=== PATIENT | female | born 1970 | race Caucasian/White ===

== ENCOUNTER → 2019-05-29 | Outpatient (REF) | payer BC ==
[2019-05-29 21:47] LABS: APPEARANCE, URINE HAZY (CLEAR); BACTERIA, URINE AUTO 1+ (NEGATIVE); BILIRUBIN, URINE AUTO NEGATIVE (NEGATIVE); BLOOD, URINE BLOOD 1+ (NEGATIVE); COLOR, URINE YELLOW (YELLOW); GLUCOSE, URINE (UA) AUTO NEGATIVE (NEGATIVE); KETONE, URINE AUTO NEGATIVE (NEGATIVE); LEUKOCYTE ESTERASE, URINE AUTO 3+ (NEGATIVE); MUCUS, URINE SMALL (NEGATIVE); NITRITE, URINE AUTO NEGATIVE (NEGATIVE); PROTEIN, URINE AUTO NEGATIVE (NEGATIVE); RBC, URINE AUTO 14 /HPF (0-3); SPECIFIC GRAVITY URINE AUTO 1.014 (1.002-1.035); SQUAMOUS EPITHELIAL CELL UR AU 3 /HPF (0-6); UROBILINOGEN, URINE AUTO 0.2 mg/dL (0.0-2.0); WBC, URINE AUTO 36 /HPF (0-3)
== END ==
LOC: M LAB REF 14:44
PROVIDERS: ATTEND Physician Assistant Medical
DX: N39.0 Urinary tract infection, site not specified (principal)

== ENCOUNTER → 2019-12-05 | Outpatient (CLI) | payer BC | LOC: M PLALAB 12:27 | PROVIDERS: ATTEND Surgery | DX: Z13.79 Encounter for other screening for genetic and chromosomal anomalies (principal) ==

== ENCOUNTER → 2019-12-05 | Outpatient (CLI) | payer BC ==
--- NOTE | 2019-12-05 13:54 | REP ---
ULTRASOUND LEFT BREAST: Real-time sonographic evaluation of the left breast performed in the region of the 1 o'clock, 6 cm from the nipple, in the region of a palpable lump. In that region there is an oval mildly lobulated hypoechoic structure. This appears bilobed. It may represent two adjacent cysts or a bilobed cyst with a thin septation. It measures 5.0 x 3.0 x 6.0 mm in total. No internal color flow is seen with Doppler evaluation. IMPRESSION: ACR 3 probably benign. Hypoechoic structure at 1 o'clock left breast at the site of a palpable abnormality. In total it measures 5.0 x 3.0 x 6.0 mm and appears to represent a bilobed cyst with a thin septation, or two adjacent cysts. Recommend followup ultrasound in 6 months.
== END ==
LOC: M WHC 12:09
PROVIDERS: ATTEND Surgery
DX: N63.20 Unspecified lump in the left breast, unspecified quadrant (principal); R92.1 Mammographic calcification found on diagnostic imaging of breast

== ENCOUNTER → 2019-12-14 | Outpatient (CLI) | payer BC ==
[~2019-12-14] MED LIST: BUPR150T3 PO; CVS1CAP2 PO; OMEP10CASR PO
[2019-12-14 12:41] VITALS: BP 112/72
--- NOTE | 2019-12-14 13:54 | REP ---
SPECIMEN RADIOGRAPHY LEFT BREAST: TWO VIEWS. HISTORY: Stereotactic needle biopsy for microcalcifications. Comparison mammography November 28, 2019. FINDINGS: Specimen radiography demonstrates numerous microcalcifications from the target grouping in the removed biopsy specimens. IMPRESSION: Specimen radiography demonstrates multiple microcalcifications from the target grouping.
--- NOTE | 2019-12-17 15:03 | ROOPDOC ---
[facility] Report Of Operation Report of Operation DATE OF PROCEDURE: 12/14/19 PREPROCEDURE DIAGNOSES: Left breast calcifications POSTPROCEDURE DIAGNOSES: Left breast calcifications PROCEDURE: Left breast stereotactic biopsy of calcifications and clip placement. SURGEON: Man Becerra RIDDLER OPERATOR: ANESTHESIA: Local anesthetic was used. ESTIMATED BLOOD LOSS: Approximately 1 mL. COMPLICATIONS: None. REMARKS: clip is visible on postbiopsy mammogram. There are a few remaining calcifications next the clip DESCRIPTION OF PROCEDURE: Lidocaine 1% LOT [id number] Expiration 01/2023 Sodium Bicarbonate 8.4% LOT [id number] Expiration 01/2021 Hydromark clip LOT F [id number] Expiration 06/2021 T1 titanium shaped 1 (closed Spring) Bx device: Stereotactic Mammotome Revolve Dual Vacuum- assisted Biopsy System 10 G LOT [id number] Expiration 09/2022 Informed consent was obtained in the preop area. The most common risk and possible complications including bleeding, hematoma, bruising, infection, injury to surrounding structures were explained to the patient and she expressed understanding. Patient was taken to the procedure room and placed prone on the [facility] Breast Biopsy table with the left breast hanging through the table aperture. Left breast was placed into Cranio-Caudal compression and [employer] sonu images were taken. Suspicious calcifications were identified on the sonu images and target was set using CC from the top approach At this time, since we were able to confirm visibility of the suspicious calcifications and patient tolerated prone positioning allowing to proceed with the biopsy, appropriate time out was done stating patients name, date of , and the procedure to be performed. The left breast in ML/CC compression was prepped in the usual fashion. Plain Lidocaine 1% and 8.4% sodium bicarbonate 10:1 mix was used to numb the skin, the biopsy site and tissues along the anticipated biopsy tract. Small skin incision was made with blade number 11. Mammotome 10 G stereotactic breast biopsy device was inserted through the incision and advanced to the previously set coordinates marking the target lesion. Pre-fire imaging was taken to assure appropriate positioning. At this time, Mammotome 10 G breast biopsy device was fired and vacuum assisted biopsies were collected. The biopsy samples were investigated with [employer] system and a few calcs were observed. Biopsy samples were then placed in the formaldehyde, marked with patients name and left breast biopsy site, and sent to pathology for evaluation. Hydromark clip was placed into the Mammotome biopsy device channel and deployed. Post-deployment imaging was done to assure appropriate clip deployment. Clip was noted in the left breast. At this point, paddle CC compression of the left breast was released and manual pressure was held to decrease harmonic effect and to assure hemostasis. No bleeding was noted upon removal of the pressure. Patient was slowly repositioned and placed into sitting position, and then assisted off the table. Post-biopsy mammogram of the left breast was obtained and showed clip in expected position. Postprocedural dressing was placed. Patient tolerated procedure well and was taken to the recovery unit in stable condition. Discharge instructions were discussed with the patient and she expressed understanding. MAN BECERRA DO Dec 17, 2019 15:03
== END ==
LOC: M WHCPRO 10:25
PROVIDERS: ATTEND Surgery
DX: N60.11 Diffuse cystic mastopathy of right breast (principal); R92.1 Mammographic calcification found on diagnostic imaging of breast

== ENCOUNTER → 2020-06-22 | Outpatient (CLI) | payer BC ==
--- NOTE | 2020-06-27 08:31 | REP ---
DIAGNOSTIC MAMMOGRAM LEFT BREAST HISTORY: Negative stereotactic biopsy 12/14/2019. Six month follow-up exam. Family history of breast cancer in mother at age 49. Tyrer-Cuzick lifetime risk of breast cancer 16.5%. TECHNIQUE: Mammogram of the left breast was performed with tomosynthesis and additional magnification views of the upper outer quadrant. There is mild scattered fibroglandular density. [place] breast density is B. Once again at the site of the prior biopsy in the upper outer quadrant a biopsy clip is seen. There is a small amount of surrounding post biopsy fluid. There are a couple of tiny residual calcifications at that location unchanged when compared to the post stereotactic mammographic images obtained 12/14/2019. There are other scattered tiny calcifications throughout the left breast. There is no change since the prior exam. A MediPort catheter is again seen in the axillary region. IMPRESSION: ACR 2 benign. No change when compared to the post stereotactic mammography images of 12/14/2019. Biopsy clip is again seen in the upper outer quadrant at the site of the prior stereotactic biopsy and a couple of tiny residual calcifications are again seen unchanged. No new microcalcifications are seen and there is no new mass. Recommend follow-up bilateral mammogram in 11/2020. This mammogram was interpreted with the aid of an FDA approved computer-aided detection system. The patient states her last clinical breast exam was 04/2020. Patient letter: 1. SIMEON
== END ==
LOC: M WHC 09:39
PROVIDERS: ATTEND Surgery
DX: N63.20 Unspecified lump in the left breast, unspecified quadrant (principal); R92.1 Mammographic calcification found on diagnostic imaging of breast; Z80.3 Family history of malignant neoplasm of breast; Z97.8 Presence of other specified devices
CPT/HCPCS: 77065; G0279

== ENCOUNTER → 2020-08-03 | Outpatient (CLI) | payer BC ==
--- NOTE | 2020-08-06 15:50 | REP ---
INDICATION: N63.20 LT BREAST MASS,6 MONTH F/U. COMPARISON: 12/05/2019. TECHNIQUE: Real-time sonographic evaluation of left breast performed. FINDINGS: At the 1 o'clock position of the left breast a cyst is seen with a thin septation. This appears benign on today's exam. It measures 6 x 6 x 3 mm. There is an adjacent biopsy clip noted. IMPRESSION: BIRADS/ACR category 2 benign. Simple cyst with thin septation at 1 o'clock measuring 6 x 6 x 3 mm. RECOMMENDATION: Recommend follow-up screening mammography bilaterally November 2020. <Electronically signed by Viktor Gregg > 08/06/20 [id number]
== END ==
LOC: M WHC 14:58
PROVIDERS: ATTEND Surgery
DX: N60.01 Solitary cyst of right breast (principal)

== ENCOUNTER → 2022-05-22 | Outpatient (CLI) | payer BC ==
[~2022-05-22] MED LIST changes: +BUPR150T12 PO; -BUPR150T3 PO
== END ==
LOC: M RAD 07:19
PROVIDERS: ATTEND Family Medicine
DX: R51.9 Headache, unspecified (principal); F17.210 Nicotine dependence, cigarettes, uncomplicated; Z12.2 Encounter for screening for malignant neoplasm of respiratory organs

== ENCOUNTER → 2022-12-23 | Outpatient (CLI) | payer BC ==
[~2022-12-23] MED LIST changes: +E-Z-GAS II EFFERVESCENT PACKET (SODIUM BICARB./CITRIC ACID/SIMETHICONE) As Ordered ONE; +E-Z-HD 98% w/w 340GM SUSP BTL As Ordered ONE; +E-Z-PAQUE 96% w/w SUSP 176GM BTL As Ordered ONE
== END ==
LOC: M RAD 10:32
PROVIDERS: ATTEND Surgery
DX: Z98.84 Bariatric surgery status (principal)